=== PATIENT | male | born 1965 | race Caucasian/White ===

== ENCOUNTER 2021-01-14 19:11 | Inpatient (IN) | payer MEDICARE, MEDICAID ==
[~2021-01-14] VITALS: Ht 182.9 cm; Wt 113.6 kg
[~2021-01-14 19:11] MED LIST: BENZ-52 PO; CELE20TA OR; COGE1INJ PO; LORA2TAB OR; PARO20TA3 PO; PAXI20TA3 PO; RISP0.2515; RISP1TAB42 PO; RISP2TAB12; RISP3TAB16 OR; TRAZ50TA OR; ZYPR10TA PO; ZYPR1TAB4 OR
[2021-01-14 21:34] LABS: HEMATOCRIT 43.2 % (42.0-52.0); HEMOGLOBIN 14.2 g/dl (13.5-17.5); MEAN CORPUSCULAR HEMOGLOBIN 28.7 pg (27.0-33.0); MEAN CORPUSCULAR HGB CONC 32.9 g/dl (32.0-36.5); MEAN CORPUSCULAR VOLUME 87.3 fl (80.0-96.0); PLATELET COUNT, AUTOMATED 323 10^3/uL (150-450); RED BLOOD COUNT 4.95 10^6/uL (4.30-6.10); WHITE BLOOD COUNT 10.8 10^3/uL (4.0-10.0)
[2021-01-14 22:16] LABS: ACETAMINOPHEN LEVEL < 2.0 UG/ML (10.0-30.0); ALBUMIN 4.1 GM/DL (3.2-5.2); ALT/SGPT 68 U/L (12-78); BILIRUBIN,DIRECT 0.2 MG/DL (0.0-0.2); BILIRUBIN,TOTAL 0.6 MG/DL (0.2-1.0); BLOOD UREA NITROGEN 18 MG/DL (7-18); CALCIUM LEVEL 9.2 MG/DL (8.5-10.1); CARBON DIOXIDE LEVEL 28 MEQ/L (21-32); CHLORIDE LEVEL 105 MEQ/L (98-107); ETHYL ALCOHOL (ETHANOL) 0.004 % (0.000-0.010); GLOMERULAR FILTRATION RATE > 60.0 (>56); GLUCOSE, FASTING 94 MG/DL (70-100); POTASSIUM SERUM 4.2 MEQ/L (3.5-5.1); SALICYLATE LEVEL < 1.7 MG/DL (5.0-30.0); SODIUM LEVEL 140 MEQ/L (136-145); TOTAL PROTEIN 7.9 GM/DL (6.4-8.2)
[2021-01-14 23:07] LABS: AMPHETAMINES LEVEL URINE NEGATIVE (NEGATIVE); BARBITURATES URINE NEGATIVE (NEGATIVE); BENZODIAZEPINES URINE NEGATIVE (NEGATIVE); CANNABINOIDS URINE NEGATIVE (NEGATIVE); COCAINE METABOLITE URINE NEGATIVE (NEGATIVE); METHADONE URINE NEGATIVE (NEGATIVE); OPIATES URINE NEGATIVE (NEGATIVE); PHENCYCLIDINE URINE NEGATIVE (NEGATIVE)
[2021-01-15] MEDS ORDERED: OLANZapine 5 MG TAB PO ONE (00:20)
[2021-01-15] MEDS ORDERED: BENZTROPINE 1 MG TAB PO ONE (00:20)
[2021-01-15] MEDS ORDERED: PARoxetine 20MG TABLET PO ONE (00:20)
[2021-01-15] MEDS ORDERED: risperiDONE 2 MG TAB PO ONE (00:20)
[2021-01-15] MEDS ORDERED: BENZTROPINE 0.5 MG TAB PO PRN (08:00)
[2021-01-15] MEDS: risperiDONE 2 MG TAB PO SCH ×2 (08:44→21:26)
[2021-01-15 12:43] LABS: RSV AMPLIFICATION NEGATIVE (NEGATIVE)
[2021-01-15] MEDS ORDERED: traZODone 50 MG TAB PO PRN (13:55)
[2021-01-15] MEDS ORDERED: MOM 30ML SUSPENSION UDC PO PRN (13:55)
[2021-01-15] MEDS ORDERED: MAALOX 30 ML SUSP *UDC PO PRN (13:55)
[2021-01-15] MEDS ORDERED: ACETAMINOPHEN TAB 650MG DOSE (2X325MG) PO PRN (13:55)
[2021-01-15 16:35] VITALS: BP 127/56
--- NOTE | 2021-01-15 19:47 | ECGEPIP ---
[facility] - ED Test Date: 2021-01-15 Pat Name: AMADA DAVE Department: Room: - Gender: Male Gluer And Wedger: sb : 1965 Requested By: AMY Inman Order Number: [id number] Reading MD: Ezequiel Desai Measurements Intervals Strong Rate: 97 P: 42 OK: 156 QRS: -19 QRSD: 92 T: 38 QT: 360 QTc: 457 Interpretive Statements Normal sinus rhythm POOR R WAVE PROGRESSION INCOMPLETE RIGHT BUNDLE BRANCH BLOCK NO PRIORS FOR COMPARISON Electronically Signed on 01-15-2021 19:47:43 EDT by Ezequiel Desai
[2021-01-15] MEDS: OLANZapine 5 MG TAB PO SCH (21:26)
[2021-01-15] MEDS: PARoxetine 20MG TABLET PO SCH (21:26)
[2021-01-16 06:23] VITALS: BP 125/67
[2021-01-16] MEDS: risperiDONE 2 MG TAB PO SCH ×2 (09:45→21:57)
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
[2021-01-16 21:00] VITALS: BP 128/78
[2021-01-16] MEDS: OLANZapine 5 MG TAB PO SCH (21:57)
[2021-01-16] MEDS: PARoxetine 20MG TABLET PO SCH (21:57)
[2021-01-17 06:45] VITALS: BP 134/82
[2021-01-17] MEDS: hydroCHLOROthiazide 12.5 MG CAPSULE PO SCH (09:29)
[2021-01-17] MEDS: risperiDONE 2 MG TAB PO SCH ×2 (09:29→20:39)
[2021-01-17 17:36] VITALS: BP 150/72
[2021-01-17] MEDS: OLANZapine 5 MG TAB PO SCH (20:39)
[2021-01-17] MEDS: PARoxetine 20MG TABLET PO SCH (20:39)
--- NOTE | 2021-01-17 20:41 | MHIPNPDOC ---
[facility] Progress Note Progress Note DATE OF SERVICE: 01/17/21 HISTORY: As per previous documents: "Patient is a 55 -year-old Single, Intellectually Disabled, Domiciled , male, who was brought in by police after his social sciences chair called for a welfare check. She felt the patient was more paranoid and was not doing well, decompensating. Patient states that the police violated his rights because he is "White, Disabled and Handicapped." He feels that there is a conspiracy going on against him. Also reports that people are taking things that he throws out and putting them back in his apartment. Paranoid that people are chasing him, states that this has been going on for years." VITAL SIGNS: See below. NEW TEST RESULTS: See below CURRENT MEDICATIONS: See below. MENTAL STATUS EXAMINATION: General Appearance: disheveled, appears stated age, dressed in hospital clothes, with poor eye contact Build: overweight Demeanor: guarded, preoccupied Eye Contact: average Activity: anxious, guarded Behavior: cooperative Speech: clear, reg/rate,rhythm,volume and tone Mood: anxious, irritable, easily angered Affect: flat Thought Process: loose Thought Content (Delusions): persecutory, denies SI, HI, AVH Thought Content (Other): preoccupied, other (paranoid) Thought Content (Aggressive): none reported Perception (Other): none reported Cognition (Impairment of): none reported Cognition(Intelligence Est.): borderline Oriented: Awake, Alert, Oriented times three Insight: fair, poor Judgment: Fair, Poor Psychosis: Psychotic Perceptions Diagnoses Schizophrenia Autism Spectrum Intellectual Disability ASSESSMENT: He is very paranoid, he says he throws garbage out and they keep bringing it in, he doesn't know why. He is focused on this, on someone breaking in his house, bringing thrash, moving things around. Patient has limited insight but he is taking his medications. MANAGEMENT PLAN: Will continue with the same treatment plan TIME SPENT: 20 minutes. Vital Signs Vital Signs Date Time Temp Pulse Resp B/P (MAP) Pulse Ox O2 Delivery O2 Flow Rate FiO2 01/17/21 17:36 97.6 99 18 150/72 (98) 01/17/21 06:45 94 Room Air Current Medications Current Medications Medications (Trade) Dose Ordered Sig/Waldo Route PRN Reason Start Time Stop Time Status Last Admin Dose Admin Acetaminophen (Tylenol Tab) 650 mg Q6HP PRN PO HEADACHE or DISCOMFORT 01/15/21 13:55 Al Hydrox/Mg Hydrox/Simethicone (Mylanta) 30 ml Q4HP PRN PO HEARTBURN/INDIGESTION 01/15/21 13:55 Benztropine Mesylate (Cogentin) 1 mg BIDP PRN PO ANXIETY 01/15/21 08:00 Home Med (Med Rec Complete!) ASDIRECTED XX 01/15/21 06:25 01/15/21 06:25 DC Hydrochlorothiazide (Hydrodiuril) 12.5 mg DAILY PO 01/17/21 09:00 01/17/21 09:29 Magnesium Hydroxide (Milk Of Magnesia) 30 ml DAILYPRN PRN PO CONSTIPATION 01/15/21 13:55 Olanzapine (ZyPREXA) 5 mg QHS PO 01/15/21 21:00 01/16/21 21:57 Paroxetine HCl (PAXil) 20 mg QHS PO 01/15/21 21:00 01/16/21 21:57 Risperidone (RisperDAL) 4 mg BID PO 01/15/21 09:00 01/17/21 09:29 Trazodone HCl (Desyrel) 50 mg QHSP PRN PO INSOMNIA 01/15/21 13:55 Allergies Coded Allergies: No Known Allergies (Verified , 05/10/08) NEO QUEZADA MD Jan 17, 2021 20:04
[2021-01-18 06:00] VITALS: BP 122/76
[2021-01-18] MEDS: hydroCHLOROthiazide 12.5 MG CAPSULE PO SCH (08:45)
[2021-01-18] MEDS: risperiDONE 2 MG TAB PO SCH ×2 (08:46→21:06)
--- NOTE | 2021-01-18 13:09 | MHIPNPDOC ---
[facility] Progress Note Progress Note DATE OF SERVICE: 01/18/21 HISTORY: As per previous documents: "Patient is a 55 -year-old Single, Intellectually Disabled, Domiciled , male, who was brought in by police after his social service liaison called for a welfare check. She felt the patient was more paranoid and was not doing well, decompensating. Patient states that the police violated his rights because he is "White, Disabled and Handicapped." He feels that there is a conspiracy going on against him. Also reports that people are taking things that he throws out and putting them back in his apartment. Paranoid that people are chasing him, states that this has been going on for years." VITAL SIGNS: See below. NEW TEST RESULTS: See below CURRENT MEDICATIONS: See below. MENTAL STATUS EXAMINATION: General Appearance: disheveled, appears stated age, dressed in hospital clothes, with poor eye contact Build: overweight Demeanor: preoccupied Eye Contact: average Activity: anxious, guarded Behavior: cooperative Speech: clear, reg/rate,rhythm,volume and tone Mood: anxious Affect: flat Thought Process: less loose today Thought Content (Delusions): persecutory, denies SI, HI, AVH Thought Content (Other): preoccupied, other (paranoid) Thought Content (Aggressive): none reported Perception (Other): none reported Cognition (Impairment of): none reported Cognition(Intelligence Est.): borderline Oriented: Awake, Alert, Oriented times three Insight: poor Judgment: poor Psychosis: Psychotic Perceptions Diagnoses Schizophrenia Autism Spectrum Intellectual Disability ASSESSMENT: He says he is less concerned about people bringing garbage into his home. He denies feeling angry, denies feeling depressed, denies feeling nervous. Denies SI/HI. MANAGEMENT PLAN: Will continue with the same treatment plan TIME SPENT: 20 minutes. Vital Signs Vital Signs Date Time Temp Pulse Resp B/P (MAP) Pulse Ox O2 Delivery O2 Flow Rate FiO2 01/18/21 06:00 97.6 88 20 122/76 (91) 92 Room Air Current Medications Current Medications Medications (Trade) Dose Ordered Sig/Waldo Route PRN Reason Start Time Stop Time Status Last Admin Dose Admin Acetaminophen (Tylenol Tab) 650 mg Q6HP PRN PO HEADACHE or DISCOMFORT 01/15/21 13:55 Al Hydrox/Mg Hydrox/Simethicone (Mylanta) 30 ml Q4HP PRN PO HEARTBURN/INDIGESTION 01/15/21 13:55 Benztropine Mesylate (Cogentin) 1 mg BIDP PRN PO ANXIETY 01/15/21 08:00 Home Med (Med Rec Complete!) ASDIRECTED XX 01/15/21 06:25 01/15/21 06:25 DC Hydrochlorothiazide (Hydrodiuril) 12.5 mg DAILY PO 01/17/21 09:00 01/18/21 08:45 Magnesium Hydroxide (Milk Of Magnesia) 30 ml DAILYPRN PRN PO CONSTIPATION 01/15/21 13:55 Olanzapine (ZyPREXA) 5 mg QHS PO 01/15/21 21:00 01/17/21 20:39 Paroxetine HCl (PAXil) 20 mg QHS PO 01/15/21 21:00 01/17/21 20:39 Risperidone (RisperDAL) 4 mg BID PO 01/15/21 09:00 01/18/21 08:46 Trazodone HCl (Desyrel) 50 mg QHSP PRN PO INSOMNIA 01/15/21 13:55 Allergies Coded Allergies: No Known Allergies (Verified , 05/10/08) NEO QUEZADA MD Jan 18, 2021 13:09
[2021-01-18 18:04] VITALS: BP 105/67
[2021-01-18] MEDS: OLANZapine 5 MG TAB PO SCH (21:06)
[2021-01-18] MEDS: PARoxetine 20MG TABLET PO SCH (21:07)
[2021-01-19 06:25] VITALS: BP 150/72
[2021-01-19] MEDS: hydroCHLOROthiazide 12.5 MG CAPSULE PO SCH (08:47)
[2021-01-19] MEDS: risperiDONE 2 MG TAB PO SCH ×2 (08:47→21:00)
--- NOTE | 2021-01-19 14:58 | MHIPNPDOC ---
[facility] Progress Note Progress Note DATE OF SERVICE: 01/19/21 HISTORY: Patient is a 55 -year-old Single, Intellectually Disabled, Domiciled , male, who was brought in by police after his group social worker called for a welfare check. She felt the patient was more paranoid and was not doing well, decompensating. Patient states that the police violated his rights because he is "White, Disabled and Handicapped." He feels that there is a conspiracy going on against him. Also reports that people are taking things that he throws out and putting them back in his apartment. Paranoid that people are chasing him, states that this has been going on for years. PER ED REPORT: Pt arrives with [facility] after patients group social worker called police to do a welfare check due to having increasing paranoia and agitation. Pt was brought to [facility] on a 9.41 due to police knowing this patient well and they feel as though pt is decompensating. Pt has a long history of schizophrenia with multiple admissions on [facility] however; pt does have a long gap between admissions and has not been seen since 2013. Pt is very focused on sports and will not engage in any other conversation. Tw tried to redirect pt several times however, he continued to talk about sports. Pt does feel that he is psychic and talks about "everyone is out to get me". Pt is very fearful and states that he is "scared". Pt tried to be redirected several times however, pt continued to express paranoia and fear. Pt was finally redirected and pt stated that people are breaking into his house. Pt states that this has been happening for a long time however, has been gradually getting worse. Pt is adamant that people are coming into his home and throwing garbage everywhere. Pt reports that this is stuff that he has previously thrown away. Pt reports that he has video evidence of this and feels that his "rights are being violated". Pt reports that earlier today he he had called several decommissioning well site manager in hopes that someone would take his case. Pt states "I am just reaching out for help and nobody will listen to me because, they say I have schizophrenia. Pt reports that he arrived earlier today to one of the steel pourer's offices and started counting money in front of the legal administrative secretary there. Pt reports that he was getting rather loud and must have scared the legal administrative secretary because; he is so very desperate for someone to take the case. Pt also feels as though he is being spied on when he goes to the bathroom. Pt denies SI/HI. Pt reports poor appetite and sleep. VITAL SIGNS: See below. CURRENT MEDICATIONS: See below. MENTAL STATUS EXAMINATION:Patient is a 55 -year-old Single, Intellectually Disabled, Domiciled , male, who was brought in by police Patient is a - year old male, who is for paranoid and delusiona thought Speech: Is fluid, conversant, normal rate, tone and volume Language skills are intact Thought processes including: linear and goal oriented Thought content: reports mild depression and anxiety. Denies suicidal/homicidal ideation, planning or intent. Abstract reasoning, and computation: fair Description of associations: paranoid Description of abnormal or psychotic thoughts: believes he is being spied on Judgment: fair Insight: limited Orientation: alert and oriented to person, place, time and situation Recent and remote memory: intact Attention span and concentration: good Language: expansive Fund of knowledge: average Mood: Mildly Depressed Mood Affect: Flat, anxious DIAGNOSES: Schizophrenia Autism Spectrum Intellectual Disability ASSESSMENT: Patient reports mild depression and anxiety, worried about people coming into his home. But wants to return home. He has been taking his medications, he remains mildly paranoid and delusional but denies suicidality or homicidality. His insight and judgement is improving MANAGEMENT PLAN: Continue all medications, discharge pending this week TIME SPENT: 25 minutes. Vital Signs Vital Signs Date Time Temp Pulse Resp B/P (MAP) Pulse Ox O2 Delivery O2 Flow Rate FiO2 01/19/21 06:25 97.8 100 16 150/72 (98) 95 Room Air Current Medications Current Medications Medications (Trade) Dose Ordered Sig/Waldo Route PRN Reason Start Time Stop Time Status Last Admin Dose Admin Acetaminophen (Tylenol Tab) 650 mg Q6HP PRN PO HEADACHE or DISCOMFORT 01/15/21 13:55 Al Hydrox/Mg Hydrox/Simethicone (Mylanta) 30 ml Q4HP PRN PO HEARTBURN/INDIGESTION 01/15/21 13:55 Benztropine Mesylate (Cogentin) 1 mg BIDP PRN PO ANXIETY 01/15/21 08:00 Home Med (Med Rec Complete!) ASDIRECTED XX 01/15/21 06:25 01/15/21 06:25 DC Hydrochlorothiazide (Hydrodiuril) 12.5 mg DAILY PO 01/17/21 09:00 01/19/21 08:47 Magnesium Hydroxide (Milk Of Magnesia) 30 ml DAILYPRN PRN PO CONSTIPATION 01/15/21 13:55 Olanzapine (ZyPREXA) 5 mg QHS PO 01/15/21 21:00 01/18/21 21:06 Paroxetine HCl (PAXil) 20 mg QHS PO 01/15/21 21:00 01/18/21 21:07 Risperidone (RisperDAL) 4 mg BID PO 01/15/21 09:00 01/19/21 08:47 Trazodone HCl (Desyrel) 50 mg QHSP PRN PO INSOMNIA 01/15/21 13:55 Allergies Coded Allergies: No Known Allergies (Verified , 05/10/08) TERENCE CORADO NP Jan 19, 2021 14:58
[2021-01-19 16:10] VITALS: BP 148/76
[2021-01-19] MEDS: OLANZapine 5 MG TAB PO SCH (21:00)
[2021-01-19] MEDS: PARoxetine 20MG TABLET PO SCH (21:00)
[2021-01-20] MEDS: hydroCHLOROthiazide 12.5 MG CAPSULE PO SCH (08:33)
[2021-01-20] MEDS: risperiDONE 2 MG TAB PO SCH ×2 (08:33→21:35)
[2021-01-20] MEDS ORDERED: BENZTROPINE 1 MG TAB PO PRN (10:30)
[2021-01-20 16:07] VITALS: BP 132/76
--- NOTE | 2021-01-20 16:17 | MHIPNPDOC ---
[facility] Progress Note Progress Note DATE OF SERVICE: 01/20/21 HISTORY: Patient is a 55 -year-old Single, Intellectually Disabled, Domiciled , male, who was brought in by police after his dialysis social worker called for a welfare check. She felt the patient was more paranoid and was not doing well, decompensating. Patient states that the police violated his rights because he is "White, Disabled and Handicapped." He feels that there is a conspiracy going on against him. Also reports that people are taking things that he throws out and putting them back in his apartment. Paranoid that people are chasing him, states that this has been going on for years. PER ED REPORT: Pt arrives with [facility] after patients dialysis social worker called police to do a welfare check due to having increasing paranoia and agitation. Pt was brought to [facility] on a 9.41 due to police knowing this patient well and they feel as though pt is decompensating. Pt has a long history of schizophrenia with multiple admissions on [facility] however; pt does have a long gap between admissions and has not been seen since 2013. Pt is very focused on sports and will not engage in any other conversation. Tw tried to redirect pt several times however, he continued to talk about sports. Pt does feel that he is psychic and talks about "everyone is out to get me". Pt is very fearful and states that he is "scared". Pt tried to be redirected several times however, pt continued to express paranoia and fear. Pt was finally redirected and pt stated that people are breaking into his house. Pt states that this has been happening for a long time however, has been gradually getting worse. Pt is adamant that people are coming into his home and throwing garbage everywhere. Pt reports that this is stuff that he has previously thrown away. Pt reports that he has video evidence of this and feels that his "rights are being violated". Pt reports that earlier today he he had called several glass setter in hopes that someone would take his case. Pt states "I am just reaching out for help and nobody will listen to me because, they say I have schizophrenia. Pt reports that he arrived earlier today to one of the paint line supervisor's offices and started counting money in front of the social secretary there. Pt reports that he was getting rather loud and must have scared the social secretary because; he is so very desperate for someone to take the case. Pt also feels as though he is being spied on when he goes to the bathroom. Pt denies SI/HI. Pt reports poor appetite and sleep. VITAL SIGNS: See below. CURRENT MEDICATIONS: See below. MENTAL STATUS EXAMINATION:Patient is a 55 -year-old Single, Intellectually Disabled, Domiciled , male, who was brought in by police Patient is a - year old male, who is for paranoid and delusiona thought Speech: Is fluid, conversant, normal rate, tone and volume Language skills are intact Thought processes including: linear and goal oriented Thought content: reports mild depression and anxiety. Denies suicidal/homicidal ideation, planning or intent. Abstract reasoning, and computation: fair Description of associations: paranoid, ruminations about people bringing garbage into his home. Description of abnormal or psychotic thoughts: believes he is targeted for being "white, disabled and handicapped" Judgment: limited Insight: limited Orientation: alert and oriented to person, place, time and situation Recent and remote memory: intact Attention span and concentration: good Language: average Fund of knowledge: average Mood: Irritable Mood Affect: Flat, anxious DIAGNOSES: Schizophrenia, Paranoid Type Autism Spectrum Intellectual Disability ASSESSMENT: Patient appears anxious. He wants to discuss how people are bringing in garbage into his home, states that this has been going on for years. Stated in the interview "I am being targeted because I am white, disabled and handicapped. I just want you to listen to me and listen to me good, do you think that I am not feeling the truth? My rights are being violated, I want you to listen to me and I need to be heard" Patient reports that his long time complaint about his apartment being broken into and people bringing in garbage has been brought to the Police and the [employer]. He states that his apartment had cameras and that they were tampered with and that he no longer has the evidence. Educated patient on his diagnosis. Patient denied that he has paranoia or delusions. Reinforced with patient that his apartment and its contents cannot be addressed by the hospital and that he should bring this up with his case operator +/or police. Patient remains steadfast in his delusions about his apartment but is not observed to be a danger to himself or others. Patient states that he wants to be discharged on Tuesday. Have encouraged patient to consider a long acting injectable. MANAGEMENT PLAN: Continue all medications, discharge pending this week TIME SPENT: 25 minutes. Vital Signs Vital Signs Date Time Temp Pulse Resp B/P (MAP) Pulse Ox O2 Delivery O2 Flow Rate FiO2 01/20/21 07:13 98.5 94 20 94 Room Air 01/19/21 16:10 148/76 (100) Current Medications Current Medications Medications (Trade) Dose Ordered Sig/Waldo Route PRN Reason Start Time Stop Time Status Last Admin Dose Admin Acetaminophen (Tylenol Tab) 650 mg Q6HP PRN PO HEADACHE or DISCOMFORT 01/15/21 13:55 Al Hydrox/Mg Hydrox/Simethicone (Mylanta) 30 ml Q4HP PRN PO HEARTBURN/INDIGESTION 01/15/21 13:55 Benztropine Mesylate (Cogentin) 1 mg BIDP PRN PO ANXIETY 01/15/21 08:00 Cancel Benztropine Mesylate (Cogentin) 1 mg BIDP PRN PO Anxiety 01/20/21 10:30 Home Med (Med Rec Complete!) ASDIRECTED XX 01/15/21 06:25 01/15/21 06:25 DC Hydrochlorothiazide (Hydrodiuril) 12.5 mg DAILY PO 01/17/21 09:00 01/20/21 08:33 Magnesium Hydroxide (Milk Of Magnesia) 30 ml DAILYPRN PRN PO CONSTIPATION 01/15/21 13:55 Miscellaneous (Unresolved Clarification Entry) SEE LABEL COMMENTS DAILY XX 01/20/21 09:00 01/20/21 10:57 DC Olanzapine (ZyPREXA) 5 mg QHS PO 01/15/21 21:00 01/20/21 10:27 DC 01/18/21 21:06 Olanzapine (ZyPREXA) 5 mg QHS PO 01/20/21 21:00 Paroxetine HCl (PAXil) 20 mg QHS PO 01/15/21 21:00 01/20/21 10:27 DC 01/18/21 21:07 Paroxetine HCl (PAXil) 20 mg QHS PO 01/20/21 21:00 Risperidone (RisperDAL) 4 mg BID PO 01/15/21 09:00 01/20/21 10:27 DC 01/20/21 08:33 Risperidone (RisperDAL) 4 mg BID PO 01/20/21 21:00 Trazodone HCl (Desyrel) 50 mg QHSP PRN PO INSOMNIA 01/15/21 13:55 Allergies Coded Allergies: No Known Allergies (Verified , 05/10/08) TERENCE CORADO NP Jan 20, 2021 16:17
[2021-01-20] MEDS: OLANZapine 5 MG TAB PO SCH (21:35)
[2021-01-20] MEDS: PARoxetine 20MG TABLET PO SCH (21:35)
[2021-01-21 06:52] VITALS: BP 118/60
[2021-01-21] MEDS: hydroCHLOROthiazide 12.5 MG CAPSULE PO SCH (08:58)
[2021-01-21] MEDS: risperiDONE 2 MG TAB PO SCH ×2 (08:58→22:00)
--- NOTE | 2021-01-21 09:44 | MHIPNPDOC ---
[facility] Progress Note Progress Note DATE OF SERVICE: 01/21/21 HISTORY: Patient is a 55 -year-old Single, Intellectually Disabled, Domiciled , male, who was brought in by police after his health social work professor called for a welfare check. She felt the patient was more paranoid and was not doing well, decompensating. Patient states that the police violated his rights because he is "White, Disabled and Handicapped." He feels that there is a conspiracy going on against him. Also reports that people are taking things that he throws out and putting them back in his apartment. Paranoid that people are chasing him, states that this has been going on for years. VITAL SIGNS: See below. CURRENT MEDICATIONS: See below. MENTAL STATUS EXAMINATION:Patient is a 55 -year-old Single, Intellectually Disabled, Domiciled , male, who was brought in by police Patient is a - year old male, who is for paranoid and delusiona thought Speech: Is fluid, conversant, normal rate, tone and volume Language skills are intact Thought processes including: linear and goal oriented but ruminative Thought content: reports mild depression and anxiety. Denies suicidal/homicidal ideation, planning or intent. Abstract reasoning, and computation: fair Description of associations: paranoid, ruminations about people bringing garbage into his home. Description of abnormal or psychotic thoughts: believes he is targeted for being "white, disabled and handicapped" Judgment: limited Insight: limited Orientation: alert and oriented to person, place, time and situation Recent and remote memory: intact Attention span and concentration: good Language: average Fund of knowledge: average Mood: Irritable Mood Affect: Flat, anxious DIAGNOSES: Schizophrenia, Paranoid Type Autism Spectrum Intellectual Disability ASSESSMENT: Found sleeping in bed, agreeable "I am crazy situation, one tough situation because people are not taking me seriously. People are bringing in garbage into my house." States that his landlord tells him to pray. "It's crazy isn't it." "It's a reoccurrence. it keeps happening." Patient argues that people have continuously targeted him but wants an answer for what he should be doing to find the people who are putting garbage in his home. When given an solution he wants to know if his situation is real, or if the provider even believes him. When reiterating that his situation is odd and eccentric and that it cannot be determine to be real or not, he continues to questions why the provider does not have an opinion. Patient ruminates throughout the interview about why the provider does not believe him Reinforced with the patient that I do not question whether these people are real or not, but question why he becomes upset when I cannot have a definitive answer to his questions about the "strangers" He became irritable at times during the interview. Patient continues to have this fixed delusions but remains free of self-harm to self and others/ . MANAGEMENT PLAN: Continue all medications, discharge on Tuesday, TIME SPENT: 25 minutes. Vital Signs Vital Signs Date Time Temp Pulse Resp B/P (MAP) Pulse Ox O2 Delivery O2 Flow Rate FiO2 01/21/21 06:52 98.3 81 20 118/60 (79) 95 Room Air Current Medications Current Medications Medications (Trade) Dose Ordered Sig/Waldo Route PRN Reason Start Time Stop Time Status Last Admin Dose Admin Acetaminophen (Tylenol Tab) 650 mg Q6HP PRN PO HEADACHE or DISCOMFORT 01/15/21 13:55 Al Hydrox/Mg Hydrox/Simethicone (Mylanta) 30 ml Q4HP PRN PO HEARTBURN/INDIGESTION 01/15/21 13:55 Benztropine Mesylate (Cogentin) 1 mg BIDP PRN PO ANXIETY 01/15/21 08:00 Cancel Benztropine Mesylate (Cogentin) 1 mg BIDP PRN PO Anxiety 01/20/21 10:30 Home Med (Med Rec Complete!) ASDIRECTED XX 01/15/21 06:25 01/15/21 06:25 DC Hydrochlorothiazide (Hydrodiuril) 12.5 mg DAILY PO 01/17/21 09:00 01/21/21 08:58 Magnesium Hydroxide (Milk Of Magnesia) 30 ml DAILYPRN PRN PO CONSTIPATION 01/15/21 13:55 Miscellaneous (Unresolved Clarification Entry) SEE LABEL COMMENTS DAILY XX 01/20/21 09:00 01/20/21 10:57 DC Olanzapine (ZyPREXA) 5 mg QHS PO 01/15/21 21:00 01/20/21 10:27 DC 01/18/21 21:06 Olanzapine (ZyPREXA) 5 mg QHS PO 01/20/21 21:00 01/20/21 21:35 Paroxetine HCl (PAXil) 20 mg QHS PO 01/15/21 21:00 01/20/21 10:27 DC 01/18/21 21:07 Paroxetine HCl (PAXil) 20 mg QHS PO 01/20/21 21:00 01/20/21 21:35 Risperidone (RisperDAL) 4 mg BID PO 01/15/21 09:00 01/20/21 10:27 DC 01/20/21 08:33 Risperidone (RisperDAL) 4 mg BID PO 01/20/21 21:00 01/21/21 08:58 Trazodone HCl (Desyrel) 50 mg QHSP PRN PO INSOMNIA 01/15/21 13:55 Allergies Coded Allergies: No Known Allergies (Verified , 05/10/08) TERENCE CORADO NP Jan 21, 2021 09:44
[2021-01-21 16:03] VITALS: BP 139/71
--- NOTE | 2021-01-21 18:32 | HPEPDOC ---
General Date of Admission Jan 15, 2021 at 13:53 Date of Service: Jan 21, 2021 Attending Physician: ZEN CASTRO MD Chief Complaint The patient is a 55-year-old male admitted with a reason for visit of Schizoprenia. Source: Patient, RN/MD Exam Limitations: Clinical conditions (Paranoid psychosis) History of Present Illness 55 yo M with a history of intellectual disability and chart diagnosis of autism spectrum disorder and paranoid schizophrenia who was brought in by police after his provider triggered a welfare check after he expressed behavior consistent with worsening paranoid delusions with concern for psychiatric decompensation. In the ED, lab evaluation was within normal limits and [facility] and [facility]. Medicine is being consulted for medical evaluation. He denies current physical pain without chest pain, abdominal pain, nausea, emesis, shortness of breath. He is concerned about people returning garbage to his personal space and how they are out to get him. Home Medications No Active Prescriptions or Reported Meds Allergies Coded Allergies: No Known Allergies (Verified , 05/10/08) Past Medical History Medical History Autism spectrum disorder Intellectual disability Schizophrenia Surgical History None Family History Significant Family History: No pertinent family hx Social History * Smoker: Denies Alcohol: Denies Drugs: denies Recent Travel/Sick Contacts: Denies: Recent travel, Recent sick contacts Psychosocial History: Schizophrenia A-FIB/CHADSVASC A-FIB History Current/History of A-Fib/PAF?: No Current PO Anticoag Therapy: No Age/Risk Factor Scoring CHADSVASC: CHADSVASC Response (Comments) Value Age Risk Factor Age < 65 years old 0 Gender Risk Factor Male 0 Hx of CHF No 0 Hx of HTN Yes 1 Hx of Stroke/TIA/or VTE No 0 Hx of Diabetes No 0 Hx of Vascular Disease No 0 Total 1 Treatment Treatment ordered: NONE Reason Anticoagulant not given: Not indicated/[id number] Review of Systems Constitutional: Denies: Chills, Fever, Night Sweats Eyes: Denies: Pain, Vision change ENT: Denies: Head Aches, Ear Pain, Dysphagia Skin: Denies: Rash, Lesions, Jaundice, Bruising, Itching, Dry, Breakdown, Nail Changes, Other Pulmonary: Denies: Dyspnea, Cough Cardiovascular: Denies: Chest Pain, Palpitations, Orthopnea, Paroxysmal Noc. Dyspnea, Lt Headedness Gastrointestinal: Denies: Nausea, Vomiting, Abdominal Pain, Diarrhea Genitourinary: Denies: Dysuria, Frequency, Incontinence, Retention Hematologic: Denies: Bruising, Bleeding Excessively Endocrine: Denies: Polydipsia, Polyphagia, Polyuria, Heat Intolerance, Cold Intolerance, Other Endocrine Sx Musculoskeletal: Denies: Neck Pain, Back Pain, Joint Pain, Muscle Pain, Spasms Neurological: Denies: Weakness, Numbness, Change in speech, Confusion Psych: Reports: Anxiety Physical Examination General Exam: Positive: Alert, No Acute Distress Eye Exam: Positive: PERRLA, Conjunctiva & lids normal, EOMI; Negative: Sclera icteric ENT Exam: Positive: Atraumatic, Mucous membr. moist/pink, Pharynx Normal Neck Exam: Positive: Supple; Negative: JVD, thyromegaly Chest Exam: Positive: Clear to auscultation, Normal air movement Heart Exam: Positive: Rate Normal, Regular Rhythm, Normal S1, Normal S2; Negative: Murmurs, Rubs Abdomen Exam: Positive: Normal bowel sounds, Soft; Negative: Tenderness, Hepatospenomegaly Extremity Exam: Positive: Normal pulses; Negative: Clubbing, Cyanosis, Edema Skin Exam: Positive: Nl turgor and temperature; Negative: Breakdown, Lesion Neuro Exam: Positive: Normal Gait, Normal Speech, Cranial Nerves 3-12 NL, Reflexes 2+ Psych Exam: Positive: Anxiety Vital Signs Vital Signs Date Time Temp Pulse Resp B/P (MAP) Pulse Ox O2 Delivery O2 Flow Rate FiO2 01/21/21 11:05 Room Air 01/21/21 06:52 98.3 81 20 118/60 (79) 95 Assessment/Plan 55 yo M with a history of intellectual disability and chart diagnosis of autism spectrum disorder and paranoid schizophrenia who was brought in by police after his provider triggered a welfare check after he expressed behavior consistent with worsening paranoid delusions with concern for psychiatric decompensation and is now [facility] and optimization. Paranoid schizophrenia with conrad psychosis: -plan per primary psych team He is otherwise medically stable. Medicine will sign off at this time. Plan / VTE VTE Prophylaxis Ordered?: No VTE Exclusion Mechanical Proph: Low Risk for VTE VTE Exclusion Pharmacological: At Low Risk for VTE ZEN CASTRO MD Jan 21, 2021 14:27
[2021-01-21] MEDS: PARoxetine 20MG TABLET PO SCH (22:00)
[2021-01-21] MEDS: OLANZapine 5 MG TAB PO SCH (22:00)
[2021-01-22 06:55] VITALS: BP 118/73
--- NOTE | 2021-01-22 08:27 | MHIPNPDOC ---
[facility] Progress Note Progress Note DATE OF SERVICE: 01/22/21 HISTORY: Patient is a 55 -year-old Single, Intellectually Disabled, Domiciled , male, who was brought in by police after his executive secretary social welfare called for a welfare check. She felt the patient was more paranoid and was not doing well, decompensating. Patient states that the police violated his rights because he is "White, Disabled and Handicapped." He feels that there is a conspiracy going on against him. Also reports that people are taking things that he throws out and putting them back in his apartment. Paranoid that people are chasing him, states that this has been going on for years. VITAL SIGNS: See below. CURRENT MEDICATIONS: See below. MENTAL STATUS EXAMINATION:Patient is a 55 -year-old Single, Intellectually Disabled, Domiciled , male, who was brought in by police Patient is a - year old male, who is for paranoid and delusiona thought Speech: Is fluid, conversant, normal rate, tone and volume Language skills are intact Thought processes including: linear and goal oriented but ruminative Thought content: reports mild depression and anxiety. Denies suicidal/homicidal ideation, planning or intent. Abstract reasoning, and computation: fair Description of associations: paranoid, ruminations about people bringing garbage into his home. Description of abnormal or psychotic thoughts: believes he is targeted for being "white, disabled and handicapped" Judgment: limited Insight: limited Orientation: alert and oriented to person, place, time and situation Recent and remote memory: intact Attention span and concentration: good Language: average Fund of knowledge: average Mood: Irritable Mood Affect: Flat, anxious DIAGNOSES: Schizophrenia, Paranoid Type Autism Spectrum Intellectual Disability ASSESSMENT: Patient reports that he ready to return home. He continues to have delusional thinking. Continues to have bizarre thinking that people are going into his apartment, and placing garbage into his home. These are fixed delusions. He reports that in the past he called the police and insurance account representative to combat his delusions. He becomes upset when they are unable to help him. He continues to ruminate. Olanzapine was discontinued. Encouraged patient to consider long acting injectable and patient has refused everyday. I have educated him on the positive and negative aspects and he states "I don't like shots." Due to patient's Autism and Intellectual disability I believe that his ruminations will continue. There may be mild relief if he considered a long acting, but he may never fully be without his fixed delusions. Patient denies depression, anxiety, suicidal thoughts or homicidal thoughts. He had reported to be motivated to return to his apartment and clean. At this time, patient feels he can return home although he he states "I wasn't even doing anything, I was making a sandwich and they came and got me and took me here. Why did they do that?" Reviewed with patient that someone had a concern about him and the upkeep of his home as he was throwing things out. He does not believe that he is putting them back into the home, as it is reported by the ED. MANAGEMENT PLAN: Continue all medications, discharge tomorrow TIME SPENT: 25 minutes. Vital Signs Vital Signs Date Time Temp Pulse Resp B/P (MAP) Pulse Ox O2 Delivery O2 Flow Rate FiO2 01/22/21 06:55 96.9 75 18 118/73 (88) 94 Room Air Current Medications Current Medications Medications (Trade) Dose Ordered Sig/Waldo Route PRN Reason Start Time Stop Time Status Last Admin Dose Admin Acetaminophen (Tylenol Tab) 650 mg Q6HP PRN PO HEADACHE or DISCOMFORT 01/15/21 13:55 Al Hydrox/Mg Hydrox/Simethicone (Mylanta) 30 ml Q4HP PRN PO HEARTBURN/INDIGESTION 01/15/21 13:55 Benztropine Mesylate (Cogentin) 1 mg BIDP PRN PO ANXIETY 01/15/21 08:00 Cancel Benztropine Mesylate (Cogentin) 1 mg BIDP PRN PO Anxiety 01/20/21 10:30 Home Med (Med Rec Complete!) ASDIRECTED XX 01/15/21 06:25 01/15/21 06:25 DC Hydrochlorothiazide (Hydrodiuril) 12.5 mg DAILY PO 01/17/21 09:00 01/21/21 08:58 Magnesium Hydroxide (Milk Of Magnesia) 30 ml DAILYPRN PRN PO CONSTIPATION 01/15/21 13:55 Miscellaneous (Unresolved Clarification Entry) SEE LABEL COMMENTS DAILY XX 01/20/21 09:00 01/20/21 10:57 DC Olanzapine (ZyPREXA) 5 mg QHS PO 01/15/21 21:00 01/20/21 10:27 DC 01/18/21 21:06 Olanzapine (ZyPREXA) 5 mg QHS PO 01/20/21 21:00 01/21/21 22:00 Paroxetine HCl (PAXil) 20 mg QHS PO 01/15/21 21:00 01/20/21 10:27 DC 01/18/21 21:07 Paroxetine HCl (PAXil) 20 mg QHS PO 01/20/21 21:00 01/21/21 22:00 Risperidone (RisperDAL) 4 mg BID PO 01/15/21 09:00 01/20/21 10:27 DC 01/20/21 08:33 Risperidone (RisperDAL) 4 mg BID PO 01/20/21 21:00 01/21/21 22:00 Trazodone HCl (Desyrel) 50 mg QHSP PRN PO INSOMNIA 01/15/21 13:55 Allergies Coded Allergies: No Known Allergies (Verified , 05/10/08) TERENCE CORADO NP Jan 22, 2021 08:17
[2021-01-22] MEDS ORDERED: RISP4TAB33 PO (08:32)
[2021-01-22] MEDS ORDERED: BENZ-52 PO (08:32)
[2021-01-22] MEDS ORDERED: HYDR12CA PO (08:32)
[2021-01-22] MEDS ORDERED: PARO20TA3 PO (08:32)
[2021-01-22] MEDS: hydroCHLOROthiazide 12.5 MG CAPSULE PO SCH (09:38)
[2021-01-22] MEDS: risperiDONE 2 MG TAB PO SCH ×2 (09:38→20:21)
[2021-01-22 16:15] VITALS: BP 161/82
[2021-01-22] MEDS: PARoxetine 20MG TABLET PO SCH (20:21)
[2021-01-23 06:00] VITALS: BP 151/85
[2021-01-23] MEDS: risperiDONE 2 MG TAB PO SCH (08:07)
[2021-01-23] MEDS: hydroCHLOROthiazide 12.5 MG CAPSULE PO SCH (08:07)
--- NOTE | 2021-01-23 12:52 | MHDSPDOC ---
[facility] Discharge Summary Discharge Summary DATE OF ADMISSION: Jan 15, 2021 at 13:53 DATE OF DISCHARGE: Jan 23, 2021 at 12:00 DISCHARGE DIAGNOSES: Schizophrenia, Paranoid Type Autism Spectrum Intellectual Disability REASON FOR ADMISSION: Patient is a 55 -year-old Single, Intellectually Disabled, Domiciled , male, who was brought in by police after his public health social worker called for a welfare check. She felt the patient was more paranoid and was not doing well, decompensating. Patient states that the police violated his rights because he is "White, Disabled and Handicapped." He feels that there is a conspiracy going on against him. Also reports that people are taking things that he throws out and putting them back in his apartment. Paranoid that people are chasing him, states that this has been going on for years. SIGNS: See below. CONSULTANTS INVOLVED: See Medical H + P by Hospitalist TREATMENT AND PROGRESS ON THE UNIT: Patient was admitted to the [facility] on a 9.39 legal status he was afforded the following treatment modalities: 1) Individual Therapy 2) Group Therapy 3) Medication Management 4) Milieu Therapy 5) Safe Environment HOSPITAL COURSE: Patient reports that he ready to return home. He continues to have delusional thinking. Continues to have bizarre thinking that people are going into his apartment, and placing garbage into his home. These are fixed delusions. He reports that in the past he called the police and high tension tester to combat his delusions. He becomes upset when they are unable to help him. He continues to ruminate. Olanzapine was discontinued. Encouraged patient to consider long acting injectable and patient has refused everyday. I have educated him on the positive and negative aspects and he states "I don't like shots." Due to patient's Autism and Intellectual disability I believe that his ruminations will continue. There may be mild relief if he considered a long acting, but he may never fully be without his fixed delusions. Patient denies depression, anxiety, suicidal thoughts or homicidal thoughts. He had reported to be motivated to return to his apartment and clean. At this time, patient feels he can return home although he he states "I wasn't even doing anything, I was making a sandwich and they came and got me and took me here. Why did they do that?" Reviewed with patient that someone had a concern about him and the upkeep of his home as he was throwing things out. He does not believe that he is putting them back into the home, as it is reported by the ED. DISCHARGE ASSESSMENT: In today's interview, patient is alert and oriented, pts dress is appropriate. Hygiene and grooming is fair. Engaged in the interview. Denies depression and anxiety. Denies suicidal and homicidal ideation, planning or intent. Denies and is not observed with miriam, light of ideas or having poor insight and judgement. Continues to have fixed delusions, bizarre thinking, obsessions, paranoia, that people are putting garbage in his home. Patient has stable mentation, declines further hospitalization on a voluntary s tatus and meets criteria for discharge today. Patient encouraged to return to hospital if symptoms worsen or change and encouraged to call unit if he/she/they needs to speak to provider for questions regarding medications or care. MENTAL STATUS EXAMINATION ON DISCHARGE: Patient is a 55 -year-old Single, Intellectually Disabled, Domiciled , male, who was brought in by police Patient is a -year old male, who is for paranoid and delusiona thought Speech: Is fluid, conversant, normal rate, tone and volume Language skills are intact Thought processes including: linear and goal oriented but ruminative Thought content: reports mild depression and anxiety. Denies suicidal/homicidal ideation, planning or intent. Abstract reasoning, and computation: fair Description of associations: paranoid, ruminations about people bringing garbage into his home. Description of abnormal or psychotic thoughts: believes he is targeted for being "white, disabled and handicapped" Judgment: limited Insight: limited Orientation: alert and oriented to person, place, time and situation Recent and remote memory: intact Attention span and concentration: good Language: average Fund of knowledge: average Mood: Irritable Mood Affect: Flat, anxious MEDICATIONS ON DISCHARGE: See Medication Reconciliation PLAN/FOLLOWUP ARRANGEMENTS: [facility] The amount of time spent in the coordination of care for this patient was approximately 25 minutes. ETOH/Disorder Med Rx ETOH/DRUG DISORDER RX: N/A Vital Signs/I&Os Vital Signs Date Time Temp Pulse Resp B/P (MAP) Pulse Ox O2 Delivery O2 Flow Rate FiO2 01/22/21 16:15 98.4 94 16 161/82 (108) 97 Room Air Medications Scheduled Hydrochlorothiazide (Hydrochlorothiazide) 12.5 Mg Capsule, 12.5 MG PO DAILY for Blood Pressure, #7 Paroxetine HCl (Paroxetine HCl) 20 Mg Tablet, 20 MG PO QHS for Depression, #7 Risperidone (Risperdal) 4 Mg Tablet, 4 MG PO BID for Psychosis, #14 Scheduled PRN Benztropine Mesylate (Benztropine Mesylate) 1 Mg Tablet, 1 MG PO BIDP PRN for EPS, #14 Allergies Coded Allergies: No Known Allergies (Verified , 05/10/08) TERENCE CORADO NP Jan 23, 2021 12:52
== END 2021-01-23 12:00 | disposition home or self-care (01) | DRG 885 ==
LOC: M ED 19:11 → M ED INP 01-15 13:53 → M PSY 01-15 15:17
PROVIDERS: ADMIT Psychiatry & Neurology Psychiatry; ATTEND Psychiatry & Neurology Psychiatry
DX: F20.0 Paranoid schizophrenia (principal); F84.0 Autistic disorder; F79 Unspecified intellectual disabilities; Z20.822 Contact with and (suspected) exposure to COVID-19; Z79.899 Other long term (current) drug therapy